=== PATIENT | female | born 1955 | race Caucasian/White ===

== ENCOUNTER → 2020-04-14 | Outpatient (CLI) | payer OTHER | END | disposition home or self-care (01) | LOC: COVID19 09:47 | PROVIDERS: ATTEND Internal Medicine | DX: Z20.828 Contact with and (suspected) exposure to other viral communicable diseases (principal) ==

== ENCOUNTER 2022-05-28 12:29 | Inpatient (IN) | payer OTHER ==
[2022-05-28] VITALS (7 sets, daily range): BP systolic 134–157; BP diastolic 54–93
[~2022-05-28] VITALS: Ht 167.6 cm; Wt 57.2 kg
[2022-05-28 13:07] LABS: BASO % 0.6 % (0.0-1.0); EOS # 0.1 10*3/uL (0.0-0.4); EOS % 1.2 % (1.0-4.0); HEMATOCRIT 39.1 % (37.0-47.0); LYMPH # 1.2 10*3/uL (1.3-4.4); LYMPH % 23.4 % (27.0-41.0); MEAN CELL VOLUME 87.3 fl (81.0-99.0); MEAN CORPUSCULAR HGB 29.7 pg (27.0-31.0); MEAN PLATELET VOLUME 9.1 fl (9.6-12.3); MONO # 0.5 10*3/uL (0.1-1.0); MONO % 9.7 % (3.0-9.0); NEUT # 3.2 10*3/uL (2.3-7.9); NEUT % 64.7 % (47.0-73.0); PLATELET COUNT AUTOMATED 247 10*3/uL (130-400); RED BLOOD COUNT 4.48 10*6/uL (4.10-5.10); RED CELL DISTRI WIDTH 12.4 % (0-14.5)
[2022-05-28 13:17] LABS: ACT PARTIAL THROMBO TIME 26.4 SECONDS (20.0-32.1); INTERNATIONAL NORM RATIO 0.9 (2.0-3.5)
[2022-05-28 13:23] LABS: ALKALINE PHOSPHATASE 106 U/L (46-116); BUN 11 mg/dl (9-23); CHLORIDE 92 mmol/L (98-107); LIPASE 28 U/L (12-53); POTASSIUM 3.5 mmol/L (3.4-5.1); SGPT/ALT 216 U/L (10-49)
[2022-05-28 13:23] LABS: BILIRUBIN Negative (Negative); BLOOD Negative (Negative); CLARITY Clear (Clear); COLOR Yellow (Yellow); GLUCOSE Negative (Negative); KETONE Negative (Negative); LEUKO ESTERASE Negative (Negative); NITRITE Negative (Negative); UROBILINOGEN 0.2 E.U./dl (0.0-1.0)
[2022-05-28 13:40] LABS: WBC 0-2 wbc/hpf (0-5)
[2022-05-28] MEDS ORDERED: PREDNISOLONE ACE5 M5 OP (21:43)
[2022-05-28] MEDS ORDERED: LOSARTAN POTASS25 M1 PO (22:21)
[2022-05-28] MEDS ORDERED: HYDROCHLOROTHIA25 M1 PO (22:22)
[2022-05-28] MEDS ORDERED: BIOTIN10 MG PO (22:22)
[2022-05-29] VITALS: BP 129/57
[2022-05-29 06:36] LABS: BASO % 0.7 % (0.0-1.0); EOS # 0.1 10*3/uL (0.0-0.4); EOS % 2.7 % (1.0-4.0); HEMATOCRIT 39.6 % (37.0-47.0); LYMPH % 22.7 % (27.0-41.0); MEAN CORPUSCULAR HGB CONC 34.1 g/dl (33.0-37.0); MEAN PLATELET VOLUME 9.2 fl (9.6-12.3); MONO # 0.6 10*3/uL (0.1-1.0); MONO % 13.5 % (3.0-9.0); NEUT # 2.7 10*3/uL (2.3-7.9); NEUT % 59.9 % (47.0-73.0); PLATELET COUNT AUTOMATED 232 10*3/uL (130-400); RED CELL DISTRI WIDTH 12.6 % (0-14.5); WHITE BLOOD COUNT 4.4 10*3/uL (4.8-10.8)
[2022-05-29 07:24] LABS: ALKALINE PHOSPHATASE 91 U/L (46-116); BUN 7 mg/dl (9-23); CHLORIDE 101 mmol/L (98-107); CHOLESTEROL 170 mg/dL (<200); FREE T4 1.32 ng/dl (0.89-1.76); LDL CHOLESTEROL 105 mg/dL (9-159); POTASSIUM 3.8 mmol/L (3.4-5.1); SGPT/ALT 178 U/L (10-49); THYROID STIM HORMONE (HS) 1.118 uIU/ml (0.550-4.780); TOTAL PROTEIN 6.4 gm/dL (6.0-8.0); TRIGLYCERIDES 99 mg/dl (<150)
[2022-05-29 08:00] VITALS: BP 119/62
[2022-05-29] MEDS ORDERED: TRULANCE PO (09:55)
[2022-05-29 12:00] VITALS: BP 126/58
[2022-05-29 16:00] VITALS: BP 132/60
[2022-05-29 20:00] VITALS: BP 116/47
[2022-05-30] VITALS: BP 105/51
[2022-05-30 05:06] LABS: HBSAG Negative (Negative); HEP B CORE AB, IGM Negative (Negative); HEPATITIS C ANTIBODY 0.1 (0.0-0.9)
[2022-05-30 08:00] VITALS: BP 125/62
[2022-05-30 12:00] VITALS: BP 148/62
[2022-05-30] MEDS ORDERED: NORVASC5 MG PO (13:35)
== END 2022-05-30 14:15 | disposition home or self-care (01) | DRG 315 ==
LOC: ED 12:29 → 4E 17:01 → EDHOLD 17:01 → 4E 19:12
PROVIDERS: Emergency Medicine; Internal Medicine; ADMIT Internal Medicine; ATTEND Internal Medicine
DX: I95.9 Hypotension, unspecified (principal); E87.1 Hypo-osmolality and hyponatremia; S06.0X0A Concussion without loss of consciousness, initial encounter; R00.1 Bradycardia, unspecified; E05.00 Thyrotoxicosis with diffuse goiter without thyrotoxic crisis or storm; K58.9 Irritable bowel syndrome, unspecified; E87.8 Other disorders of electrolyte and fluid balance, not elsewhere classified; R74.01 Elevation of levels of liver transaminase levels; J44.9 Chronic obstructive pulmonary disease, unspecified; X58.XXXA Exposure to other specified factors, initial encounter; K58.1 Irritable bowel syndrome with constipation; I10 Essential (primary) hypertension; I25.10 Atherosclerotic heart disease of native coronary artery without angina pectoris; Z88.1 Allergy status to other antibiotic agents; Z88.8 Allergy status to other drugs, medicaments and biological substances; Z79.899 Other long term (current) drug therapy; Y93.89 Activity, other specified; Y92.89 Other specified places as the place of occurrence of the external cause; Y99.8 Other external cause status